=== PATIENT | male | born 2000 | race Caucasian/White ===

== ENCOUNTER 2021-02-13 21:39 | Inpatient (IN) | payer OTHER, SELFPAY ==
--- NOTE | 2021-02-13 21:43 | W.ED.GENAD ---
Discharge Plan Disposition Patient Disposition: [facility] INPATIENT Condition: Stable Discharge Details Clinical Impression: Appendicitis Primary Care Provider: Melida,Local ED Provider: Jeni Abreu Home Meds and New Rx's Prescriptions: No Action acetaminophen [Tylenol Extra Strength] 500 mg Tablet 1,000 mg PO QID PRN (Reason: Headache) RF: 0 Medical Decision Making 20 year old with no medical history who has onset of generalized lower abdominal pain most consistent with appendicitis. IV established,bolus with NS 1 liter, zofran 4 mg IVP given. labs cbc, cmp, lipase UA and CT abd/pelvis with no contrast vital stable, wbc 11. ct consistent with acute appendicitis. discussed with Dr Ernst who accepts for admission zosyn 3.375 mg ordered, pcn allergy list but patient does not recall reaction, states he was a child and possible rash. Medical Records Medical records reviewed: Yes I reviewed the patient's medical records. Imaging Data Radiologic Study: Imaging: CT Scan Radiologist's impression: PROCEDURE INFORMATION: Exam: CT Abdomen And Pelvis Without Contrast Exam date and time: 02/13/2021 10:45 PM Age: 20 years old Clinical indication: Other: Right lower quad pain; Additional info: Right lower quad pain started today. TECHNIQUE: Imaging protocol: Computed tomography of the abdomen and pelvis without contrast. Radiation optimization: All CT scans at this facility use at least one of these dose optimization techniques: automated exposure control; mA and/or kV adjustment per patient size (includes targeted exams where dose is matched to clinical indication); or iterative reconstruction. COMPARISON: No relevant prior studies available. FINDINGS: Liver: Normal. No mass. Gallbladder and bile ducts: Normal. No calcified stones. No ductal dilation. Pancreas: Normal. No ductal dilation. Spleen: Normal. No splenomegaly. Adrenal glands: Normal. No mass. Kidneys and ureters: Normal. No hydronephrosis. Stomach and bowel: Unremarkable. No obstruction. No mucosal thickening. Appendix: The appendix demonstrates mild diffuse distention, consistent with acute appendicitis. Intraperitoneal space: Minimal periappendiceal fat stranding. No free air. No significant fluid collection. Vasculature: Unremarkable. No abdominal aortic aneurysm. Lymph nodes: Unremarkable. No enlarged lymph nodes. Urinary bladder: Unremarkable as visualized. Reproductive: Unremarkable as visualized. Bones/joints: Mild L3-L4 degenerative disc disease. No acute fracture or focal suspicious osseous lesion. Soft tissues: Unremarkable. IMPRESSION: Acute appendicitis. Dictated and Authenticated by: Onel Connolly MD. Lab Data Lab results reviewed: Yes I reviewed the patient's lab results. Labs: Laboratory Tests Range/Units 02/13/21 02/13/21 22:20 22:20 WBC (4.4-10.8) 10^3/uL 11.27 H RBC (4.36-5.78) 10^6/uL 5.19 Hgb (13.5-17.5) g/dL 14.1 Hct (40.0-50.0) % 43.5 MCV (80-95) fL 83.8 MCH (27.0-33.0) pg 27.2 MCHC (32.0-36.0) % 32.4 RDW (11.8-14.1) % 13.2 Plt Count (130-400) 10^3/uL 281 MPV (8.0-11.0) fL 10.2 Immature Gran % 0.3 Neutrophils % 80.3 Lymphocytes % 14.1 Monocytes % 4.8 Eosinophils % 0.1 Basophils % 0.4 Nucleated RBC % % 0 Absolute Neutrophils (1.2-6.7) 10^3/uL 9.05 H Absolute Lymphocytes (1.2-3.4) 10^3/uL 1.59 Absolute Monocytes (0.1-0.8) 10^3/uL 0.54 Absolute Eosinophils (0.0-0.7) 10^3/uL 0.01 Absolute Basophils (0.0-0.2) 10^3/uL 0.05 Sodium (136-145) mmol/L 141 Potassium (3.5-5.1) mmol/L 3.7 Chloride (98-107) mmol/L 104 Carbon Dioxide (21.0-32.0) mmol/L 29.2 Anion Gap (3-11) mmol/L 7.8 BUN (7-18) mg/dL 10 Creatinine (0.70-1.30) mg/dL 0.9 Estimated GFR/1.73 m2 (mL/min/1.73m2) >= 60.00 Glucose (74-106) mg/dL 91 Calcium (8.5-10.1) mg/dL 9.7 Total Bilirubin (0.2-1.0) mg/dL 0.5 AST (15-37) U/L 17 ALT (16-63) U/L 35 Alkaline Phosphatase (46-116) U/L 149 H Total Protein (6.4-8.2) g/dL 8.0 Albumin (3.4-5.0) g/dL 4.2 Lipase (73-393) U/L 60 HPI General Mode of arrival: ambulatory. Date/Time Provider Initiated Documentation: 02/13/21 21:42. Limitations to Documentation: no limitations. Information obtained by: patient. HPI Narrative: 20 year old with no medical history who has onset of generalized lower abdominal pain this am that localized to right lower quad. he vomited x1 after eating lunch at 1 pm and has only had water and gatorade since with no further vomiting. no similar history no fever, no close contacts with similar symptoms. normal bowel movements and pattern with last bm today formed Related Data Home Medications Medication Instructions Recorded Confirmed acetaminophen [Tylenol Extra 1,000 mg PO QID PRN 02/13/21 02/13/21 Strength] Allergies Allergy/AdvReac Type Severity Reaction Status Date / Time Penicillins Allergy Other (See Unverified 02/13/21 21:48 Comment) General Stated Complaint: Abd Prob SARITA: 3 Review of Systems All systems reviewed & are unremarkable except as noted in HPI and below Constitutional Constitutional: Reports anorexia, Denies fever(s) and Reports poor appetite ENT Ears, Nose, Mouth, and Throat: Denies vertigo Cardiovascular Cardiovascular: Denies chest pain Respiratory Respiratory: Denies chest congestion and Denies cough Gastrointestinal Gastrointestinal: Reports abdominal pain, Denies constipation, Denies diarrhea, Reports nausea and Reports vomiting Genitourinary Genitourinary: Denies dysuria Musculoskeletal Musculoskeletal: Denies back pain Integumentary/Breasts Skin/Breast: Denies rash Neurologic Neurologic: Denies vertigo [facility] Social History Smoking/Tobacco Use Status: Never Smoking risk assessment performed?: Yes Alcohol Intake: never Substance use type: does not use Do you feel safe at home: Yes Do you feel safe in your relationship?: Yes Exam Const General: cooperative and no acute distress Nutritional Appearance: overweight Orientation: alert, awake and oriented x3 HENMT Head: normal to inspection, normocephalic and atraumatic Mouth: oral mucosae normal Resp Effort & Inspection: normal respiratory effort Auscultation: clear to auscultation bilaterally Cardio Rate: regular rate Rhythm: regular rhythm GI Inspection: normal to inspection Palpation: soft and tender in the RLQ; with no rebound tenderness Auscultation: normal bowel sounds Skin General skin exam: no rashes or lesions noted Neuro General: patient alert, patient awake and patient oriented x3 Extrem General: normal to inspection, full ROM and no pedal edema Psych Appearance: grossly normal Mental Status: mental status grossly normal Speech and Movement: speech and movement normal Mood: congruent mood Affect: normal affect Attitude: cooperative
[2021-02-13 21:44] VITALS: BP 147/96; PULSE 99; RESP 16; TEMP 37.1; O2SAT 98
--- NOTE | 2021-02-13 21:45 | DI.CT_ITS ---
EXAM: CT ABDOMEN PELVIS WO CLINICAL HISTORY: right lower quad pain. TECHNIQUE: Imaging Protocol: Axial computed tomography images with coronal and sagittal reformatted images were created and reviewed CONTRAST MATERIAL: Intravenous: none Oral: None COMPARISON: No exams were available for comparison FINDINGS: VISUALIZED LUNG BASES: No nodules nor pleural effusions evident. ABDOMEN: There is no ascites. LIVER: There are no obvious focal hepatic lesions evident of this noninfused study. GALLBLADDER/BILIARY: No obvious gallbladder pathology. CBD is not dilated. PANCREAS: No evidence of pancreatic mass nor dilatation of the pancreatic duct. SPLEEN: Spleen is not enlarged. No obvious intrasplenic lesions. ADRENALS: There are no significant adrenal masses. KIDNEYS:No cysts evident. No solid renal masses. No calculi nor hydronephrosis. . ABDOMINAL AORTA: Abdominal aorta is not enlarged. LYMPH NODES: There is no retroperitoneal nor paraaortic adenopathy. ABDOMINAL WALL/GI: No evidence of significant anterior abdominal wall hernia. No bowel obstruction. PELVIS: LYMPH NODES: There is no intrapelvic nor inguinal adenopathy. GI: The appendix is distended to diameter of 9 millimeters and there is some mild periventricular str eaking. No appendicoliths. No perforation. No abscess.No evidence of sigmoid diverticulitis. URINARY BLADDER: No calculi nor obvious masses evident REPRODUCTIVE: Unremarkable OSSEOUS: No significant osseous lesions. IMPRESSION: 1. Findings are consistent with acute appendicitis 2. No evidence of perforation nor abscess at this time. RADIATION DOSE DELIVERED: 1,370.43mGy.cm Total DLP DATA REPOSITORY: All CT scans at this facility are submitted to the National Radiology Data Registry (NRDR) Dose Index Registry (DIR) with the [employer] (A[employer]). RADIATION OPTIMIZATION: All CT scans at this facility use at least one of these dose optimization te chniques: automated exposure control; mA and/or kV adjustment per patient size (includes targeted exa ms where dose is matched to clinical indication); or iterative reconstruction.
[2021-02-13] MEDS: Ondansetron 4 MG/2 ML VIAL IVP (22:18)
[2021-02-13] MEDS: Normal Saline 1,000 ML 1000 ML IV (22:18)
[2021-02-13 22:26] LABS: Abs Immature Grans 0.03 10^3/uL (0.0-0.06); Absolute Basophil Count 0.05 10^3/uL (0.0-0.2); Absolute Eosinophil Count 0.01 10^3/uL (0.0-0.7); Absolute Lymphocyte Count 1.59 10^3/uL (1.2-3.4); Absolute Monocyte Count 0.54 10^3/uL (0.1-0.8); Absolute Neutrophil Count 9.05 10^3/uL (1.2-6.7); Basophils % 0.4; Eosinophils % 0.1; HCT 43.5 % (40.0-50.0); HGB 14.1 g/dL (13.5-17.5); Immature Grans % 0.3; Lymphocytes % 14.1; MCH 27.2 pg (27.0-33.0); MCHC 32.4 % (32.0-36.0); MCV 83.8 fL (80-95); MPV 10.2 fL (8.0-11.0); Monocytes % 4.8; Neutrophils % 80.3; Nucleated RBC 0 %; Platelet Count 281 10^3/uL (130-400); RBC 5.19 10^6/uL (4.36-5.78); RDW 13.2 % (11.8-14.1); WBC 11.27 10^3/uL (4.4-10.8)
[2021-02-13 22:40] LABS: ALT 35 U/L (16-63); AST 17 U/L (15-37); Albumin 4.2 g/dL (3.4-5.0); Alkaline Phosphatase 149 U/L (46-116); Anion Gap 7.8 mmol/L (3-11); BUN 10 mg/dL (7-18); Bilirubin, Total 0.5 mg/dL (0.2-1.0); CO2 29.2 mmol/L (21.0-32.0); CREATININE 0.9 mg/dL (0.70-1.30); Calcium 9.7 mg/dL (8.5-10.1); Chloride 104 mmol/L (98-107); Glucose 91 mg/dL (74-106); Lipase 60 U/L (73-393); Potassium 3.7 mmol/L (3.5-5.1); Sodium 141 mmol/L (136-145)
[2021-02-13 23:00] VITALS: BP 128/67; PULSE 77; RESP 16; O2SAT 98
--- NOTE | 2021-02-13 23:15 | DI.VRAD_ITS ---
Addendum created by Onel Connolly MD on 02/13/2021 11:18:24 PM EDT: THIS REPORT CONTAINS FINDINGS THAT MAY BE CRITICAL TO PATIENT CARE. The findings were verbally communicated via telephone conference with TAVIA BALL at 11:18 PM EDT on 02/13/2021. The findings were acknowledged and understood. Initial report created on 02/13/2021 11:15:39 PM EDT: PROCEDURE INFORMATION: Exam: CT Abdomen And Pelvis Without Contrast Exam date and time: 02/13/2021 10:45 PM Age: 20 years old Clinical indication: Other: Right lower quad pain; Additional info: Right lower quad pain started today. TECHNIQUE: Imaging protocol: Computed tomography of the abdomen and pelvis without contrast. Radiation optimization: All CT scans at this facility use at least one of these dose optimization techniques: automated exposure control; mA and/or kV adjustment per patient size (includes targeted exams where dose is matched to clinical indication); or iterative reconstruction. COMPARISON: No relevant prior studies available. FINDINGS: Liver: Normal. No mass. Gallbladder and bile ducts: Normal. No calcified stones. No ductal dilation. Pancreas: Normal. No ductal dilation. Spleen: Normal. No splenomegaly. Adrenal glands: Normal. No mass. Kidneys and ureters: Normal. No hydronephrosis. Stomach and bowel: Unremarkable. No obstruction. No mucosal thickening. Appendix: The appendix demonstrates mild diffuse distention, consistent with acute appendicitis. Intraperitoneal space: Minimal periappendiceal fat stranding. No free air. No significant fluid collection. Vasculature: Unremarkable. No abdominal aortic aneurysm. Lymph nodes: Unremarkable. No enlarged lymph nodes. Urinary bladder: Unremarkable as visualized. Reproductive: Unremarkable as visualized. Bones/joints: Mild L3-L4 degenerative disc disease. No acute fracture or focal suspicious osseous lesion. Soft tissues: Unremarkable. IMPRESSION: Acute appendicitis. Dictated and Authenticated by: Onel Connolly MD. Ordering:RADHA Ngo MD
--- NOTE | 2021-02-13 23:34 | SCONE_ITS ---
Date of service: 02/14/21 History of Present Illness Narrative: Patient presented to the ER 02/13 and gradual onset of abdominal pain that has settled in the right lower quadrant over the past 12 hours. With as sociated nausea, anorexia. Exam: CT Abdomen And Pelvis Without Contrast Exam date and time: 02/13/2021 Liver: Normal. No mass. Gallbladder and bile ducts: Normal. No calcified stones. No ductal dilation. Pancreas: Normal. No ductal dilation. Spleen: Normal. No splenomegaly. Adrenal glands: Normal. No mass. Kidneys and ureters: Normal. No hydronephrosis. Stomach and bowel: Unremarkable. No obstruction. No mucosal thickening. Appendix: The appendix demonstrates mild diffuse distention, consistent with acute appendicitis. Intraperitoneal space: Minimal periappendiceal fat stranding. No free air. No significant fluid collection. Vasculature: Unremarkable. No abdominal aortic aneurysm. Lymph nodes: Unremarkable. No enlarged lymph nodes. Urinary bladder: Unremarkable as visualized. Reproductive: Unremarkable as visualized. Bones/joints: Mild L3-L4 degenerative disc disease. No acute fracture or focal suspicious osseous lesion. Soft tissues: Unremarkable. IMPRESSION: Acute appendicitis. Patient will be kept overnight on antibiotics of Levaquin and Flagyl. Dr. Mills will take him to the OR in a.m. and her discretion for laparoscopic appendectomy. He is currently uncomfortable and is exhibits no signs of shock per the ER department staff. He is hemodynamically stable and will be maintained on antibiotics overnight as well as supportive cares. Informed consent is obtained for the procedural (explained in simple layman's terms that the pt and/or family could understand) explaining risks vs benefits and alternatives to the procedure and consequences if we do not do the pr ocedure. Risks include but are not limited to:bleeding,infections, pneumonia, blood clots/DVT/PE, anesthesia(aspiration, damage to teeth/airway/SC/CVA//prolonged mechanical ventilation/PTX/IV infections), damage to bowel, bladder,blood vessels, ureters, bile ducts. Leakage from anastomosis requiring colostomy. Wound infections requirng further surgery. abscess requirring drainage. stump appendicitis. Scarring and disfigurement. Subsequent bowel obstructions from scar tissue. Possible open procedure if minimaly invsive procedure is being attempted. Consults Consult date: 02/14/21 [facility] Social History Smoking/Tobacco Use Status: Never Smoking risk assessment performed?: Yes Alcohol Intake: never Substance use type: does not use Do you feel safe at home: Yes Do you feel safe in your relationship?: Yes Results Last Vital Signs Temp 37.1 C 02/13/21 21:44 Pulse 77 02/13/21 23:00 Resp 16 02/13/21 23:00 BP 128/67 02/13/21 23:00 Pulse Ox 98 02/13/21 23:00 Labs Result diagrams: 02/13/21 22:20 02/13/21 22:20 Labs: Laboratory Results - last 24 hr 02/13/21 02/13/21 22:20 22:20 WBC 11.27 H RBC 5.19 Hgb 14.1 Hct 43.5 MCV 83.8 MCH 27.2 MCHC 32.4 RDW 13.2 Plt Count 281 MPV 10.2 Immature Gran % 0.3 Neutrophils % 80.3 Lymphocytes % 14.1 Monocytes % 4.8 Eosinophils % 0.1 Basophils % 0.4 Nucleated RBC % 0 Absolute Neutrophils 9.05 H Absolute Lymphocytes 1.59 Absolute Monocytes 0.54 Absolute Eosinophils 0.01 Absolute Basophils 0.05 Sodium 141 Potassium 3.7 Chloride 104 Carbon Dioxide 29.2 Anion Gap 7.8 BUN 10 Creatinine 0.9 Estimated GFR/1.73 m2 >= 60.00 Glucose 91 Calcium 9.7 Total Bilirubin 0.5 AST 17 ALT 35 Alkaline Phosphatase 149 H Total Protein 8.0 Albumin 4.2 Lipase 60
[2021-02-13 23:49] VITALS: BP 133/77; PULSE 80; RESP 16; O2SAT 99
[2021-02-13 23:59] LABS: Bilirubin Negative (Negative); Blood Negative (Negative); Clarity Clear (Clear); Glucose Negative (Negative); Ketones 40 mg/dL (Negative); Leukocyte Esterase Negative (Negative); Nitrite Negative (Negative); Urobilinogen 0.2 EU/dL (Up TO 0.2); pH 5.5 (5-8)
[2021-02-14] VITALS (10 sets, daily range): BP systolic 115–138; BP diastolic 72–90; PULSE 71–86; RESP 11–22; TEMP 36.3–36.8; O2SAT 96–100; BMI 34.0
[2021-02-14 00:25] LABS: Source Nasal/Nares
--- NOTE | 2021-02-14 00:52 | NUR.NOTE ---
Nursing Note: pip carl ordered and started prior to order getting cancelled. Patient received approx. 15 mL.
[2021-02-14 01:04] LABS: COVID-19 PCR Negative (Negative)
[2021-02-14] MEDS: metroNIDAZOLE 500 MG/100 ML BAG 100 MG IVPB ×3 (01:41→12:16)
[2021-02-14] MEDS: Normal Saline 1,000 ML 125 ML IV (01:45)
[2021-02-14] MEDS: levoFLOXacin 750 MG/150 ML BAG 100 MG IVPB (02:57)
--- NOTE | 2021-02-14 06:44 | W.PREOPHP ---
Date of service: 02/14/21 Time of Service: 06:44 Assessment and Plan Assessment and plan (1) Appendicitis: Status: Acute Assessment and plan: Shan is a pleasant 20-year-old gentleman who was admitted last night with acute appendicitis. He has been stable overnight. We discussed the procedure in detail. We reviewed risks and benefits. Risks, benefits and complications have been reviewed. Complications include but are not limited to bleeding, infection, injury to adjacent bowel, abscess formation, staple line leak, inability to do the procedure laparoscopically and adverse reaction to the medications. Questions were entertained and answered to their satisfaction and they wished to proceed. No guarantees were given or implied. Proceed with laparoscopic appendectomy Qualifiers: Appendicitis type: acute appendicitis Acute appendicitis type: with localized peritonitis Appendicitis gangrene presence: without gangrene Appendicitis perforation presence: without perforation Appendicitis abscess presence: without abscess Qualified Code(s): K35.30 - Acute appendicitis with localized peritonitis, without perforation or gangrene History of Present Illness Narrative: Mr. Madrid is a pleasant 20 year old male who was seen in the ER last night for RLQ pain. The pain started mid-abdomen and then moved to the RLQ. He was admitted overnight by Dr. Ernst for surgery today. He has done well overnight. His pain is a 3/10. He has not requiered any pain medication. He was given Levaquin and flagyl in the ER. CT scan was reviewed this morning and shows a mildly dilated appendix with some mild inflammation. There are no signs of rupture or abscess. His WBC count was slightly elevated at 11.27. Exam: CT Abdomen And Pelvis Without Contrast Exam date and time: 02/13/2021 10:45 PM Age: 20 years old Clinical indication: Other: Right lower quad pain; Additional info: Right lower quad pain started today. TECHNIQUE: Imaging protocol: Computed tomography of the abdomen and pelvis without contrast. Radiation optimization: All CT scans at this facility use at least one of these dose optimization techniques: automated exposure control; mA and/or kV adjustment per patient size (includes targeted exams where dose is matched to clinical indication); or iterative reconstruction. COMPARISON: No relevant prior studies available. FINDINGS: Liver: Normal. No mass. Gallbladder and bile ducts: Normal. No calcified stones. No ductal dilation. Pancreas: Normal. No ductal dilation. Spleen: Normal. No splenomegaly. Adrenal glands: Normal. No mass. Kidneys and ureters: Normal. No hydronephrosis. Stomach and bowel: Unremarkable. No obstruction. No mucosal thickening. Appendix: The appendix demonstrates mild diffuse distention, consistent with acute appendicitis. Intraperitoneal space: Minimal periappendiceal fat stranding. No free air. No significant fluid collection. Vasculature: Unremarkable. No abdominal aortic aneurysm. Lymph nodes: Unremarkable. No enlarged lymph nodes. Urinary bladder: Unremarkable as visualized. Reproductive: Unremarkable as visualized. Bones/joints: Mild L3-L4 degenerative disc disease. No acute fracture or focal suspicious osseous lesion. Soft tissues: Unremarkable. IMPRESSION: Acute appendicitis. Review of Systems Constitutional Constitutional: Denies fatigue, Denies fever(s) and Denies headache(s) Eyes Eyes: Denies change in vision ENT Ears, Nose, Mouth, and Throat: Denies headache(s) and Denies hoarseness Cardiovascular Cardiovascular: Denies chest pain, Denies chest pain at rest, Denies irregular heart rhythm, Denies palpitations and Denies dyspnea Respiratory Respiratory: Denies cough and Denies dyspnea Gastrointestinal Gastrointestinal: Reports as per HPI Genitourinary Genitourinary: Reports system reviewed and no additional complaints, except as documented Neurologic Neurologic: Denies headache(s) Endocrine Endocrine: Denies fatigue and Denies palpitations [facility] Medical History (Updated 02/14/21 @ 06:59 by Laura Mills MD) No active medical problems Surgical History (Updated 02/14/21 @ 06:58 by Laura Mills MD) No history of previous surgery Social History Smoking/Tobacco Use Status: Never Smoking risk assessment performed?: Yes Alcohol Intake: never Substance use type: does not use Do you feel safe at home: Yes Do you feel safe in your relationship?: Yes Meds Allergies and Home Medications Allergies Allergy/AdvReac Type Severity Reaction Status Date / Time Penicillins Allergy Other (See Unverified 02/13/21 21:48 Comment) Home Medications Medication Instructions Recorded Confirmed Type acetaminophen [Tylenol Extra 1,000 mg PO QID PRN 02/13/21 02/13/21 History Strength] Exam Const General: cooperative, comfortable and no acute distress Orientation: alert and oriented x3 Resp Effort & Inspection: normal respiratory effort Auscultation: clear to auscultation bilaterally Cardio Rate: regular rate Rhythm: regular rhythm Heart Sounds: no gallops, no murmurs and no rubs GI Inspection: normal to inspection Palpation: soft, no hepatosplenomegaly and tender (mild RLQ pain. No guarding or rebound) Auscultation: normal bowel sounds Results Labs Result diagrams: 02/13/21 22:20 02/13/21 22:20 Labs: Laboratory Results - last 24 hr 02/13/21 02/13/21 02/13/21 22:20 22:20 23:55 WBC 11.27 H RBC 5.19 Hgb 14.1 Hct 43.5 MCV 83.8 MCH 27.2 MCHC 32.4 RDW 13.2 Plt Count 281 MPV 10.2 Immature Gran % 0.3 Neutrophils % 80.3 Lymphocytes % 14.1 Monocytes % 4.8 Eosinophils % 0.1 Basophils % 0.4 Nucleated RBC % 0 Absolute Neutrophils 9.05 H Absolute Lymphocytes 1.59 Absolute Monocytes 0.54 Absolute Eosinophils 0.01 Absolute Basophils 0.05 Sodium 141 Potassium 3.7 Chloride 104 Carbon Dioxide 29.2 Anion Gap 7.8 BUN 10 Creatinine 0.9 Estimated GFR/1.73 m2 >= 60.00 Glucose 91 Calcium 9.7 Total Bilirubin 0.5 AST 17 ALT 35 Alkaline Phosphatase 149 H Total Protein 8.0 Albumin 4.2 Lipase 60 Urine Color Yellow Urine Clarity Clear Urine pH 5.5 Ur Specific [place] 1.020 Urine Protein Negative Urine Ketones 40 H Urine Blood Negative Urine Nitrite Negative Urine Bilirubin Negative Urine Urobilinogen 0.2 Ur Leukocyte Esterase Negative Urine Glucose Negative COVID-19 Source SARS-CoV-2 (PCR) 02/14/21 00:20 WBC RBC Hgb Hct MCV MCH MCHC RDW Plt Count MPV Immature Gran % Neutrophils % Lymphocytes % Monocytes % Eosinophils % Basophils % Nucleated RBC % Absolute Neutrophils Absolute Lymphocytes Absolute Monocytes Absolute Eosinophils Absolute Basophils Sodium Potassium Chloride Carbon Dioxide Anion Gap BUN Creatinine Estimated GFR/1.73 m2 Glucose Calcium Total Bilirubin AST ALT Alkaline Phosphatase Total Protein Albumin Lipase Urine Color Urine Clarity Urine pH Ur Specific [place] Urine Protein Urine Ketones Urine Blood Urine Nitrite Urine Bilirubin Urine Urobilinogen Ur Leukocyte Esterase Urine Glucose COVID-19 Source Nasal/nares SARS-CoV-2 (PCR) Negative Last Vital Signs Temp 97.7 F 02/14/21 00:53 Pulse 86 02/14/21 00:53 Resp 17 02/14/21 00:53 BP 129/85 02/14/21 00:53 Pulse Ox 98 02/14/21 00:53
--- NOTE | 2021-02-14 07:01 | W.PM.OP ---
Date of service: 02/14/21 Time of Service: 12:45 Operative Note Operative Note DATE OF PROCEDURE: 02/14/21 PRE-OP DIAGNOSIS: Acute Appendicitis POST-OP DIAGNOSIS: same PROCEDURE: Laparoscopic Appendectomy SURGEON: Laura Mills [facility] NURSE PSYCHOTHERAPIST: Chel Bradley ANESTHESIA TYPE: Local By Surgeon and General LMA/ETT Refer to Anesthesia Record ESTIMATED BLOOD LOSS: 25 PATHOLOGY: other (Appendix) COMPLICATIONS: None Patient was transported to: PACU Patient's condition: stable Implants: None Indications: Shan is a pleasant 20-year-old gentleman admitted last night with acute appendicitis. He has done well overnight. We discussed laparoscopic appendectomy versus antibiotic treatment alone. Reviewed risks and benefits of both. As he is young and healthy I recommend just going ahead with laparoscopic appendectomy. Risks benefits and complications were reviewed with him and he wished to proceed. No guarantees were given or implied. Findings: Slightly erythematous and dilated appendix Procedure Description: After informed consent was obtained the patient was taken to the operating room placed in the supine position, SCDs were applied, as well as monitors. A timeout was done. The patient was then placed under general anesthesia and intubated without any difficulty. Next a Cao catheter was placed in a standard surgical fashion. At this point the abdomen was prepped and draped in a sterile surgical fashion with chlorhexidine. A second timeout was done and the patient's name, date of , operation to be performed, DVT prophylaxis, antibiotic given, and fire risk was assessed. Exparel mixed 50-50 with 0.25% Marcaine was injected into the dermis just above the umbilicus. A small 5 mm incision was made with an 11 blade. The skin was grasped with penetrating towel clamps on either side of the incision and then using a Visiport a 5 mm port was placed under direct visualization into the abdomen. The abdomen was insufflated. Local anesthetic was then injected just above the pubic symphysis at the midline. A small 5 mm incision was made with an 11 blade and another 5 mm port was placed under direct visualization into the abdomen. The local anesthetic was then injected in the left lower quadrant area and a 12 mm incision was made with an 11 blade. A 12 mm port was then placed under direct visualization. The patient's bed was then turned to the left and head down allowing me to sweep of the small bowel out of the right lower quadrant. The terminal ileum was noted to be scarred to the peritoneum at the level of the pelvic brim. The cecum was gently grasped and the appendix was identified. The appendix looked slightly inflammed and thickened. The appendix was grasped at the neck and pulled up slightly allowing me to visualize the junction with the cecum. Using the laparoscopic LigaSure the mesoappendix was slowly transected. Once completely transected the appendix was transected with a laparoscopic stapler at the junction with the cecum. The appendix was placed into an Endo Catch bag and removed through the 12 mm port site. The port was placed back into the abdomen and the staple line was identified. No bleeding was noted. The transected mesentery was identified and no bleeding was noted. The abdomen was then irrigated with 1500 cc of warm normal saline. The effluent was clear. The staple line was inspected one more time and no bleeding was identified at this point. Once all the fluid was suctioned out of the abdomen, the 12 mm ports was then removed under direct visualization and no bleeding was noted from the fascia. The insufflation was stopped and the 2 5 mm port were removed. The 12 mm port site fascia was closed with a 0 Vicryl [id number] suture. The skin was then closed with 4-0 Vicryl. The skin was cleaned and dried and skin affix was applied. The patient was woken up extubated and taken back to recovery room in stable condition. There were no immediate complications. Sponge instrument needle counts were correct at the end of the case x2.
[2021-02-14] MEDS: Acetaminophen 325 MG TAB 650 MG PO ×2 (07:35→14:36)
--- NOTE | 2021-02-14 07:44 | W.ANESPRE ---
General Info Date of Service Date Performed: 02/14/21 Height: 6 ft 1 in Weight: 117 kg Body Mass Index (BMI): 34.0 Surgical Procedure: Operation Date: 02/14/21 12:25 Proposed Procedures Side Surgeon p Appendectomy Laparoscopic Laura Mills MD Meds Allergies and Home Medications Allergies Allergy/AdvReac Type Severity Reaction Status Date / Time Penicillins Allergy Other (See Unverified 02/13/21 21:48 Comment) Home Medication Medication Instructions Recorded acetaminophen [Tylenol Extra 1,000 mg PO QID PRN 02/13/21 Strength] Current Visit Medications: Current Medications Generic Name Dose Route Start Last Admin Trade Name Freq PRN Reason Stop Dose Admin Acetaminophen 650 mg 02/13/21 23:24 02/14/21 07:35 Acetaminophen 325 Mg Tab PO 650 mg Q4H PRN PRN Administration Pain Sodium Chloride 500 mls @ 0 mls/hr 02/13/21 23:24 Saline 500ml Bag IV PRN PRN As Directed Levofloxacin 750 mg in 150 mls @ 100 mls/hr 02/14/21 02:00 02/14/21 04:35 Levaquin Premixed Bag IVPB Infused Q24H BEBA Infusion Protocol Metronidazole 500 mg in 100 mls @ 100 mls/hr 02/14/21 02:00 02/14/21 07:21 Flagyl IVPB 100 mls/hr Q6H BEBA Administration Sodium Chloride 1,000 mls @ 125 mls/hr 02/14/21 08:00 02/14/21 04:35 Saline 1000ml Bag IV 125 mls/hr INFUSION BEBA Infusion IV Miscellaneous Supplies 1 each 02/13/21 23:30 Iv Access IV DIRECTED BEBA Morphine Sulfate 2 - 4 mg 02/14/21 00:53 Morphine 4 Mg/Ml Syr IVP Q1H PRN Ondansetron HCl 4 mg 02/13/21 23:24 Ondansetron 4 Mg/2 Ml Vial IVP Q6H PRN PRN Sodium Chloride 0 ml 02/13/21 21:47 Normal Saline Flush 10 Ml Syr IVP PRN PRN Sodium Chloride 0 ml 02/13/21 23:24 Normal Saline Flush 10 Ml Syr IVP PRN PRN PFSH Active Problems Active Problems: Problem Status Onset Code Appendicitis K37 Medical History Medical History No active medical problems Surgical History Surgical History No history of previous surgery Tobacco Smoking/Tobacco Use Status: Never Passive smoking exposure: No Second hand exposure: No Alcohol Alcohol Intake: never Substance Use Substance use: Never Substance use type: does not use Vital Signs and Lab Results Vital Signs Most Recent Vital Signs in EMR: Most Recent Vital Signs Temp Pulse Resp BP Pulse Ox 36.6 C 78 18 121/78 97 02/14/21 07:11 02/14/21 07:11 02/14/21 07:11 02/14/21 07:11 02/14/21 07:11 Lab Results Result Diagrams: 02/13/21 22:20 02/13/21 22:20 Blood Type / Crossmatch: No Data to Display Complete Blood Count: White Blood Count 11.27 10^3/uL (4.4-10.8) H 02/13/21 22:20 02/13/21 Red Blood Count 5.19 10^6/uL (4.36-5.78) 02/13/21 22:20 02/13/21 Hemoglobin 14.1 g/dL (13.5-17.5) 02/13/21 22:20 02/13/21 Hematocrit 43.5 % (40.0-50.0) 02/13/21 22:20 02/13/21 Platelet Count 281 10^3/uL (130-400) 02/13/21 22:20 02/13/21 Complete Metabolic Panel: Sodium Level 141 mmol/L (136-145) 02/13/21 22:20 02/13/21 Potassium Level 3.7 mmol/L (3.5-5.1) 02/13/21 22:20 02/13/21 Chloride Level 104 mmol/L (98-107) 02/13/21 22:20 02/13/21 Carbon Dioxide Level 29.2 mmol/L (21.0-32.0) 02/13/21 22:20 02/13/21 Blood Urea Nitrogen 10 mg/dL (7-18) 02/13/21 22:20 02/13/21 Creatinine 0.9 mg/dL (0.70-1.30) 02/13/21 22:20 02/13/21 Calcium Level 9.7 mg/dL (8.5-10.1) 02/13/21 22:20 02/13/21 Albumin 4.2 g/dL (3.4-5.0) 02/13/21 22:20 02/13/21 Glucose Level 91 mg/dL (74-106) 02/13/21 22:20 02/13/21 Liver Function Panel: Alanine Aminotransferase (ALT/SGPT) 35 U/L (16-63) 02/13/21 22:20 02/13/21 Aspartate Amino Transf (AST/SGOT) 17 U/L (15-37) 02/13/21 22:20 02/13/21 Coagulation Panel: No Data to Display Cardiac Panel: No Data to Display Arterial Blood Gas: No Data to Display Venous Blood Gas: No Data to Display Pancreas Panel: Lipase 60 U/L (73-393) 02/13/21 22:20 02/13/21 Thyroid Panel: No Data to Display Infectious Disease: Coronavirus (COVID-19)(PCR) Negative (Negative) 02/14/21 00:20 02/14/21 Coronavirus 2019 Source Nasal/nares 02/14/21 00:20 02/14/21 Blood Cultures: No Data to Display Toxicology Panel: No Data to Display Anesthesia Assessment and Plan Anesthesia History Personal History: No History of General Anesthesia Family History: No Family History of Anesthesia Complications Exercise Tolerance Exercise Tolerance: Metabolic Equivalents>4 Pertinent Negatives Pertinent Negatives: No Symptoms of GERD, No Major Cardiovascular Symptoms or Complaints, No Major Pulmonary Symptoms or Complaints and No History of CVA/TIA Cardiac & Pulmonary Exam Cardiac Exam: Normal S1/S2 Heart Sounds Pulmonary Exam: Clear Bilateral Breath Sounds Airway Exam Known Difficult Airway: No Mallampati Class: 2 Mouth Opening: Normal (> 3cm) Thyromental Distance: Greater than 3 cm Neck Range of Motion: Full ROM Neck Circumference: Normal Teeth Condition: Normal Dentition Airway Comment:: multiple cavities that all but one have been filled, two broken teeth (one on each side) bottom that have not been repaired ASA Classification ASA Score: ASA 1 ASA Emergency: Yes NPO Status NPO Status: NPO Clears >2 hours, Solids >8 hours Anesthesia Plan Anesthesia Technique: General Anesthesia Airway Planned: Endotracheal Tube Monitors Used: Standard Monitors
--- NOTE | 2021-02-14 09:28 | PDOC.CMIN ---
- If Service Date Differs Date of service: 02/14/21 Time of Service: 09:30 Care Management Initial Assess REASON FOR HOSPITALIZATION:: Acute appendicitis PAST MEDICAL HISTORY/PAST SURGICAL HISTORY:: No significant medical/surgical history PREVIOUS FUNCTIONAL STATUS/SOCIAL/FAMILY SUPPORTS:: Shan lives in [place], [place] with his parents. He is currently a student at [employer], studying astronomy. He is independent at baseline. CURRENT FUNCTIONAL STATUS:: Shan was sitting up in his bed when CM met with him. His mother was by his side. He reported that he is feeling better now that the surgery is over. He was eating a popsicle, which he is happy about. He reported that per MD, he may be able to discharge later this evening, or possibly tomorrow morning. His mom reported that she has a hotel room for the night, as she traveled from [place] to be with Shan, and he will stay with her if he is discharged tonight. CM will continue to follow. ADVANCE DIRECTIVES:: None on file. Has patient been provided with info about the portal/API?: Yes Did the patient sign up for the portal?: No CODE STATUS:: Full Code INSURANCE COVERAGE / FINANCIAL ISSUES:: Health Plans (Not [facility]) CURRENT HOME/COMMUNITY SERVICES/EQUIPMENT:: No current services or equipment. PRIMARY CARE PHYSICIAN:: Not local POTENTIAL DISCHARGE NEEDS:: Follow up appointments. PATIENT/FAMILY EDUCATION NEEDS:: Review discharge instructions regarding acitivity levels and medications, discussion of self care needs. ANTICIPATED BARRIERS TO DISCHARGE:: None identified. TRANSPORTATION:: Via private vehicle by friends/family. PLAN:: Shan went to the OR today. Anticipate he will return home once medically cleared. He will be driven home via private vehicle by family/friends. He will follow up with his PCP and discharge plan of care. CM will continue to follow.
--- NOTE | 2021-02-14 12:35 | APP_PTH ---
PATIENT: Shan Madrid LOC: U#:[id number] AGE/SX: 20/M ROOM: 205 RE02/13/[address]: Sofie Ernst : 2000 BED: A DIS: 02/14/2021 SPEC #: [id number] RECD: 02/14/21 16:34 STATUS: CHARLES REQ #: [id number] ESTEPHANIA: 02/14/21 12:[address]: Laura Mills DEPT: Surgical Specimen RECD BY: Hailey Longoria ENTERED: 02/14/21 16:35 SP TYPE: Appendix OTHR DR: No Local Sofie Ernst Tissues: 1 - APPENDIX NOT INCIDENTAL Procedures: GROSS AND MICRO LEVEL 3 Comments: [id number]
[2021-02-14] MEDS: Bupivacaine LIPOSOME/PF 133 MG/10 ML VIAL IJ (12:39)
[2021-02-14] MEDS: Bupivacaine 0.25% Pres-Free 10 ML VIAL (12:39)
--- NOTE | 2021-02-14 15:45 | W.ANESPOSTOP ---
Postoperative Evaluation Date, Time and Location Date Performed: 02/14/21 Time Performed: 15:46 Patient Location: Med/Surg Vital Signs Most Recent Imported Vital Signs: Most Recent Vital Signs Temp Pulse Resp BP Pulse Ox 36.5 C 79 18 126/76 97 02/14/21 14:59 02/14/21 14:59 02/14/21 14:59 02/14/21 14:59 02/14/21 14:59 Pain Score Most Recent Pain Score: Most Recent Pain Score Pain Level [Right Lower 4 02/14/21 14:00 Abdomen] Pain Level 4 02/14/21 14:36 Assessment Mental Status: Awake (Alert & Oriented to Patient Baseline) Airway and Respiratory Function: Patent airway with normal (patient baseline) respiratory exam Cardiovascular Function: Hemodynamically Stable Hydration Status: Adequately Hydrated Nausea & Vomiting: No Nausea or Vomiting Pain: Pain is tolerable/mild (<5/10) Peripheral Nerve Block: Patient did not receive a nerve block
--- NOTE | 2021-02-14 16:27 | PHA.REVIEW ---
Pharmacy Admission Review - Admission Clinical Review (Last Reviewed 02/14/21 @ 07:44 by Onel Henriquez CRNA) Appendicitis (Acute) Penicillins Allergy (Unverified 02/13/21 21:48) Other (See Comment) Height 6 ft 1 in Weight 117 kg - Renal Dosing Renal Dosing: BUN 10 mg/dL (7-18) 02/13/21 22:20 Creatinine 0.9 mg/dL (0.70-1.30) 02/13/21 22:20 Medications needing adjustments: Reviewed (Crcl over 147 mL/min using adjusted body weight. Current meds okay.) - Anticoagulation Anticoagulation: Hgb 14.1 g/dL (13.5-17.5) 02/13/21 22:20 Hct 43.5 % (40.0-50.0) 02/13/21 22:20 Plt Count 281 10^3/uL (130-400) 02/13/21 22:20 Creatinine 0.9 mg/dL (0.70-1.30) 02/13/21 22:20 DVT Prohphylaxis: N/A (Watch for possible anticoagulant postop, may not be needed. Has SCDs ordered.) Therapeutic Anticoagulation: N/A - Opiate Usage Evaluate Pain Scale/Pains Meds: Reviewed Scheduled Bowel Reg ordered if on Opiates?: No (watch for need of BM meds) - Relevant Labs Sodium 141 mmol/L (136-145) 02/13/21 22:20 Potassium 3.7 mmol/L (3.5-5.1) 02/13/21 22:20 Chloride 104 mmol/L (98-107) 02/13/21 22:20 Electrolytes, C-Reactive P, ESR: Reviewed - DM Control DM Control: Glucose 91 mg/dL (74-106) 02/13/21 22:20 Insulin Dosing: N/A - Heart Failure/CA EF%, FRANCISCO's, B-Blockers, Diuretics: N/A - BP Control BP Control: Blood Pressure 126/76 Blood Pressure 118/72 Blood Pressure 115/87 Blood Pressure 120/83 Blood Pressure 133/78 Blood Pressure 137/90 Blood Pressure 138/80 Blood Pressure 131/81 Blood Pressure 121/78 If elevated: N/A - Qtc Review If Elevated: N/A - IV to PO Switch IV Medications: Reviewed - Home Meds Home Med List reviewed: Reviewed Relevent Home Meds Not ordered & why?: only home med listed is currently ordered - Current meds Current Medication Order Review: Reviewed - Comments Comments/Follow Ups: Watch VS, labs and for med changes (need of BM meds).
--- NOTE | 2021-02-14 19:19 | DSE_ITS ---
Date of service: 02/14/21 Time of Service: 19:19 Discharge Plan Disposition Patient Disposition: HOME Condition: Stable Discharge Details Reason For Visit: ACUTE APPENDICITIS Admit Date/Time: 02/13/21 23:24 Admit Provider: Sofie Ernst Attending Provider: Sofie Ernst Primary Care Provider: [place],[facility] Course Hospital Course: Shan is a pleasant 20 year old male s/p Lap. Appi this morning. He is doing well. He has minimal pain. He has a slight sore throat and some burning with urination. We discussed the sore throat and he should treat that with some lozenges. If it doesn't resolve in a few days he needs to call. His burning should also resolve in a few days. He has eating without N/V. He still would like to go home. If he is able to call his pat=rents to come pick him up he will go home tonight, otherwise he will be discharged in the morning Home Meds and New Rx's Prescriptions: New ibuprofen 600 mg tablet 600 mg PO Q6H PRNQty: 30 RF: 0 Continued acetaminophen [Tylenol Extra Strength] 500 mg Tablet 1,000 mg PO QID PRN (Reason: Headache) RF: 0 Discharge Instructions Additional Instructions: Activity at Home after surgery: 1. Make sure you walk outside at least 4 times per day 2. You should be able to climb a flight of stairs 3. No driving while in pain or taking pain medications 4. No strenuous activity or heavy lifting for 2 weeks (laparoscopic surgery) Diet, Nutrition, & wound healin. Avoid alcohol until after you are recovered from your surgery 2. Make sure to eat plenty of lean protein (meat, fish, eggs, cottage cheese, beans) 3. Eat a variety of fruits and vegetables. Eat plenty of high fiber foods to avoid constipation. 4. Drink plenty of liquids to stay hydrated and avoid constipation Pain Medications: 1. Tylenol 650mg every 6 hours as needed and Ibuprofen 600 mg every 6 hours as needed. You may alternate between the 2 medications every 3 hours 2. If a narcotic has been prescribed take as directed only for breakthrough pain For Constipation: 1. Take Milk of Magnesia or MiraLax as needed for constipation Other: 1. You may shower daily. Do not scrub the incisions 2. Do not soak the incisions for 1 week 3. You may alternate ice and heat as needed for pain and swelling Wound Care: 1. Keep the incisions clean and dry Please call our office if you develop: 1. Fevers >101.5 2. Nausea or Vomiting 3. Worsening pain 4. Redness and thick discharge from the wounds If after hours please call the Hospital at and ask to speak to the on-call surgeon Referrals: Laura Mills MD [ [facility] STAFF PHYSICIAN] - Activity:: no lifting >20 lb Equipment/Supplies:: No Equipment Needed Diet:: As Tolerated DS: Summary Time Spent with Patient providing and/or coordinating discharge services: Less than 30 minutes Status at Discharge Functional status at discharge: independent ambulation Overall status at discharge: patient is back to baseline Mental Status: mental status grossly normal Speech and Movement: speech and movement normal Mood: congruent mood Affect: normal affect Exam GI Inspection: incision (c/d/i) Palpation: soft and no hepatosplenomegaly Auscultation: normal bowel sounds Psych Mental Status: mental status grossly normal Speech and Movement: speech and movement normal Mood: congruent mood Affect: normal affect DS: Data Vitals/I&O Vitals and I&O: Vital Signs Temperature 97.7 F 02/14/21 14:59 Temperature Source Tympanic 02/14/21 14:59 Pulse 79 02/14/21 14:59 Pulse Rhythm Regular 02/14/21 15:50 Respiratory Rate 18 02/14/21 14:59 Respiratory Effort Non-Labored 02/14/21 15:50 Respiratory Depth Normal 02/14/21 15:50 Respiratory Pattern Normal 02/14/21 15:50 Blood Pressure 126/76 02/14/21 14:59 Blood Pressure Position Supine 02/13/21 21:44 Pulse Oximetry 97 02/14/21 14:59 Respiratory End-tidal CO2 40 02/14/21 13:50 Oxygen Delivery Method Room Air 02/14/21 14:59 Oxygen Flow Rate 0 02/14/21 14:59 Pain Level 0 02/14/21 15:50 Comment 02/14/21 15:50 Intake & Output 02/13/21 02/14/21 02/14/21 23:59 11:59 23:59 Intake Total 1010 / 1010 845.833 / 2625.833 1780 / 2625.833 Output Total 1600 / 1600 Balance 1010 / 1010 845.833 / 1025.833 180 / 1025.833 Weight 257 lb 15.053 oz 257 lb 15.053 oz Intake: IV 1010 / 1010 845.833 / 945.833 100 / 945.833 Oral 1680 / 1680 Output: Urine 1600 / 1600 Other: Urine Color Yellow Urine Appearance Clear Urine Odor Normal Comment Void x1 in the toilet. Void x1 in the toilet. Emesis Description None Voiding Methods Toilet Toilet Data Completed and Pending Labs on day of discharge: Labs from last 24 hours 02/14/21 02/13/21 02/13/21 00:20 23:55 22:20 WBC 11.27 H RBC 5.19 Hgb 14.1 Hct 43.5 MCV 83.8 MCH 27.2 MCHC 32.4 RDW 13.2 Plt Count 281 MPV 10.2 Immature Gran % 0.3 Neutrophils % 80.3 Lymphocytes % 14.1 Monocytes % 4.8 Eosinophils % 0.1 Basophils % 0.4 Nucleated RBC % 0 Absolute Neutrophils 9.05 H Absolute Lymphocytes 1.59 Absolute Monocytes 0.54 Absolute Eosinophils 0.01 Absolute Basophils 0.05 Sodium Potassium Chloride Carbon Dioxide Anion Gap BUN Creatinine Estimated GFR/1.73 m2 Glucose Calcium Total Bilirubin AST ALT Alkaline Phosphatase Total Protein Albumin Lipase Urine Color Yellow Urine Clarity Clear Urine pH 5.5 Ur Specific [place] 1.020 Urine Protein Negative Urine Ketones 40 H Urine Blood Negative Urine Nitrite Negative Urine Bilirubin Negative Urine Urobilinogen 0.2 Ur Leukocyte Esterase Negative Urine Glucose Negative COVID-19 Source Nasal/nares SARS-CoV-2 (PCR) Negative 02/13/21 22:20 WBC RBC Hgb Hct MCV MCH MCHC RDW Plt Count MPV Immature Gran % Neutrophils % Lymphocytes % Monocytes % Eosinophils % Basophils % Nucleated RBC % Absolute Neutrophils Absolute Lymphocytes Absolute Monocytes Absolute Eosinophils Absolute Basophils Sodium 141 Potassium 3.7 Chloride 104 Carbon Dioxide 29.2 Anion Gap 7.8 BUN 10 Creatinine 0.9 Estimated GFR/1.73 m2 >= 60.00 Glucose 91 Calcium 9.7 Total Bilirubin 0.5 AST 17 ALT 35 Alkaline Phosphatase 149 H Total Protein 8.0 Albumin 4.2 Lipase 60 Urine Color Urine Clarity Urine pH Ur Specific [place] Urine Protein Urine Ketones Urine Blood Urine Nitrite Urine Bilirubin Urine Urobilinogen Ur Leukocyte Esterase Urine Glucose COVID-19 Source SARS-CoV-2 (PCR) PFSH Medical History (Updated 02/14/21 @ 19:20 by Laura Mills MD) Hx of appendicitis Surgical History (Updated 02/14/21 @ 19:20 by Laura Mills MD) S/P laparoscopic appendectomy Social History Smoking/Tobacco Use Status: Never Second Hand Exposure: No Smoking risk assessment performed?: Yes Alcohol Intake: never Drug use: Never Substance use type: does not use Do you feel safe at home: Yes Do you feel safe in your relationship?: Yes
== END 2021-02-14 20:12 | disposition home or self-care (01) | DRG 343 ==
LOC: ER 02-14 00:34 → MS 02-14 00:39
PROVIDERS: Emergency Medicine; Surgery; Admitting Provider Surgery; Emergency Provider Nurse Practitioner Acute Care; Visit Provider Surgery
PROC: 0DTJ4ZZ Resection of Appendix, Percutaneous Endoscopic Approach (ICD-10-PCS; CPT 44970; principal; 2021-02-14 12:15)
DX: K35.30 Acute appendicitis with localized peritonitis, without perforation or gangrene (principal)
CPT/HCPCS: 44970; 36415; 80053; 83690; 87635; 96361; 96374; 99285; 74176; 81003; 85025; 88304; 94667; 99284; J1100; J1885; J1956; J2001; J2405; J2704; J3010